=== PATIENT | male | born 1975 | race American Indian/Alaskan Native ===

== ENCOUNTER 2018-07-10 13:25 | Emergency (ER) | payer OTHER ==
--- NOTE | 2018-07-10 13:53 | Emergency Department Report ---
ED Chest Pain HPI - General Chief Complaint: Chest Pain Stated Complaint: CHEST PAIN Time Seen by Provider: 07/10/18 13:41 Source: patient Mode of arrival: Ambulatory Limitations: No Limitations - History of Present Illness Initial Comments: 42-year-old male presents to the emergency department with the complaint of 2 different episodes of chest discomfort. He had one yesterday that started off as a sharp pain and then was more dull and throbbing and he thought that it might be gas pains. It went away on its own but then it return ed this morning so the patient decided to come in to get checked out. It is associated with some shortness of breath and the patient had an episodes of sweating yesterday but not today. He denies any tobacco or illicit drug use. He did not take anything for his symptoms prior to presentation today. No recent travel or sick contacts. He denies any past medical history. He denies any family history of early cardiac disease or events. - Related Data Home Medications Medication Instructions Recorded Confirmed Last Taken No Known Home Medications [No 07/10/18 07/10/18 Unknown Reported Home Medications] Allergies Allergy/AdvReac Type Severity Reaction Status Date / Time No Known Allergies Allergy Unverified 07/10/18 13:26 Heart Score - HEART Score History: Slightly suspicious EKG: Normal Age: < 45 Risk factors: No known risk factors Troponin: < normal limit HEART Score: 0 - Critical Actions Critical Actions: 0-3 pts:0.9-1.7%risk of adverse cardiac event.Candidate for discharge ED Review of Systems ROS: Stated complaint: CHEST PAIN Other details as noted in HPI Comment: All other systems reviewed and negative Constitutional: diaphoresis (yesterday). denies: fever Eyes: denies: eye pain, vision change ENT: denies: ear pain, throat pain Respiratory: shortness of breath. denies: cough Cardiovascular: chest pain. denies: palpitations Gastrointestinal: denies: abdominal pain, vomiting Genitourinary: denies: dysuria, discharge Musculoskeletal: denies: back pain, arthralgia Skin: denies: rash, lesions Neurological: denies: headache, weakness ED Past Medical Hx - Past Medical History Previous Medical History?: No - Surgical History Past Surgical History?: No - Medications Home Medications: Home Medications Medication Instructions Recorded Confirmed Last Taken Type No Known Home Medications [No 07/10/18 07/10/18 Unknown History Reported Home Medications] ED Physical Exam - General Limitations: No Limitations - Other Other exam information: GENERAL: The patient is well-developed well-nourished. HENT: Normocephalic. Atraumatic. Patient has moist mucous membranes. EYES: Extraocular motions are intact. NECK: Supple. Trachea is midline. CHEST/LUNGS: Clear to auscultation. There is no respiratory distress noted. HEART/CARDIOVASCULAR: Regular. There is no tachycardia. There is no murmur. ABDOMEN: Abdomen is soft, nontender. Patient has normal bowel sounds. There is no abdominal distention. SKIN: Skin is warm and dry. NEURO: The patient is awake, alert, and oriented. The patient is cooperative. The patient has no focal neurologic deficits. The patient has normal speech. MUSCULOSKELETAL: There is no tenderness or deformity. There is no evidence of acute injury. ED Course Vital Signs 07/10/18 07/10/18 07/10/18 13:44 13:51 14:00 Temperature 97.6 F Pulse Rate 62 53 L Respiratory 18 20 Rate Blood Pressure 136/80 125/87 O2 Sat by Pulse 98 99 Oximetry 07/10/18 07/10/18 07/10/18 14:30 15:00 15:30 Temperature Pulse Rate 56 L 50 L 59 L Respiratory 16 17 17 Rate Blood Pressure 110/73 110/69 95/74 O2 Sat by Pulse 99 100 99 Oximetry 07/10/18 07/10/18 07/10/18 16:00 16:30 17:00 Temperature Pulse Rate 53 L 48 L 49 L Respiratory 16 17 17 Rate Blood Pressure 114/77 117/74 114/75 O2 Sat by Pulse 100 100 100 Oximetry BLAISE score - Blaise Score Age > 65: (0) No Aspirin use within the Past 7 Days: (0) No 3 or more CAD Risk Factors: (0) No 2 or more Angina events in past 24 hrs: (1) Yes Known CAD with more than 50% Stenosis: (0) No Elevated Cardiac Markers: (0) No ST Deviation Greater than 0.5mm: (0) No BLAISE Score: 1 ED Medical Decision Making - Lab Data Result diagrams: 07/10/18 14:08 07/10/18 14:08 - EKG Data -: EKG Interpreted by Me EKG shows normal: sinus rhythm, axis, intervals, QRS complexes, ST-T waves (a few isolated t-wave inversions but nothing continguous) Rate: normal - EKG Data When compared to previous EKG there are: previous EKG unavailable Interpretation: other (Sinus, normal axis and rate, a few isolated T wave inversions but nothing continugous, No STEMI) - Radiology Data Radiology results: image reviewed interpreted by me: Chest x-ray does not show any acute process. There are no pleural effusions, obvious pneumonia and there is no pneumothorax. - Medical Decision Making patient presents with some intermittent chest pains that appear to have since resolved. EKG does not show any signs of ST elevation [place], or dysrhythmia. Patient's labs have been unremarkable including negative troponins 2 and a negative d-dimer. Chest x-ray does not show any focal consolidation, pneumothorax, pneumonia, pleural effusions, or any other acute process. The patient is very low on the heart score criteria and BLAISE score. He appears low suspicion for coronary artery disease as the source of his intermittent chest discomfort. Vital signs stable throughout his ED course. The patient be discharged home to follow up with primary care and he has been given a referral for cardiology. He will return to the ER if any worsening of his symptoms or any acute distress. - Differential Diagnosis [place], PE, costochondritis, GERD Critical Care Time: No Critical care attestation.: If time is entered above; I have spent that time in minutes in the direct care of this critically ill patient, excluding procedure time. ED Disposition Clinical Impression: Intermittent chest pain Disposition: - TO HOME OR SELFCARE Is pt being admited?: No Condition: Stable Instructions: Chest Pain (ED) Additional Instructions: Please follow up with a primary care physician in the next few days. I am giving you a referral for a local drawer in [place], Dr. Blanco, to follow up regarding your intermittent chest pains. Return to the emergency Department with any worsening of your symptoms or with any acute distress. Referrals: MERLIN BLANCO MD [Staff Physician] - 2-3 Days Time of Disposition: 17:33
--- NOTE | 2018-07-10 14:00 | XRay Report ---
AP CHEST: HISTORY: chest pain AP view of the chest demonstrates a normal mediastinal and cardiac contour with clear lungs and normal bony and soft tissue structures. IMPRESSION: Unremarkable AP chest.
[2018-07-10 14:23] LABS: Basophils % (Auto) 1.1 % (0.0-1.8); Eosinophils # (Auto) 0.1 K/mm3 (0.0-0.4); Eosinophils % (Auto) 2.7 % (0.0-4.3); Hematocrit 38.6 % (35.5-45.6); Lymphocytes # (Auto) 1.6 K/mm3 (1.2-5.4); Lymphocytes % (Auto) 44.9 % (13.4-35.0); Mean Corpuscular HGB Conc 34 % (32-34); Mean Corpuscular Volume 87 fl (84-94); Monocytes # (Auto) 0.4 K/mm3 (0.0-0.8); Monocytes % (Auto) 10.9 % (0.0-7.3); Platelet Count 208 K/mm3 (140-440); Red Blood Count 4.47 M/mm3 (3.65-5.03); Red Cell Distribution Width 13.4 % (13.2-15.2)
[2018-07-10 14:47] LABS: Alanine Aminotransferase 10 units/L (7-56); Albumin 4.2 g/dL (3.9-5); BUN/Creatinine Ratio 16; Blood Urea Nitrogen 13 mg/dL (9-20); Calcium 9.4 mg/dL (8.4-10.2); Hemolysis Index 3
[2018-07-10 17:07] VITALS: BP 114/75
== END 2018-07-10 17:37 | disposition home or self-care (01) ==
LOC: ED 13:25
DX: R07.89 Other chest pain (principal); R06.02 Shortness of breath
CPT/HCPCS: 36415; 71045; 80053; 84484; 85025; 85379; 93005; 93010; 99284